=== PATIENT | female | born 1985 | race Hispanic/Latino ===

== ENCOUNTER 2018-02-18 21:41 | Emergency (ER) | payer OTHER ==
[2018-02-18] MEDS ORDERED: NACL 0.9% 1000 ML 1,000 ML IV ONE (22:11)
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
[2018-02-18 22:50] LABS: Bacteria,Urine 1+ /HPF (Negative); Bilirubin,Urine NEG (Negative); Blood,Urine NEG (Negative); Color,Urine Yellow (Yellow); Mucus,Urine FEW /HPF; Urobilinogen,Urine < 2.0 mg/dL (<2.0)
[2018-02-18 22:52] LABS: Benzodiazepines Screen,Urine PRESUMPTIVE NEGATIVE; Cannabinoid Screen,Urine PRESUMPTIVE NEGATIVE; Cocaine Screen,Urine PRESUMPTIVE NEGATIVE; Methadone Screen,Urine PRESUMPTIVE NEGATIVE; Opiate Screen,Urine PRESUMPTIVE NEGATIVE
[2018-02-18 23:05] LABS: Basophils # (Auto) 0.1 K/mm3 (0.0-0.1); Basophils % (Auto) 1.3 % (0.0-1.8); Eosinophils % (Auto) 0.7 % (0.0-4.3); Hematocrit 32.6 % (30.3-42.9); Hemoglobin 11.5 gm/dl (10.1-14.3); Lymphocytes # (Auto) 2.3 K/mm3 (1.2-5.4); Lymphocytes % (Auto) 38.4 % (13.4-35.0); Mean Corpuscular HGB Conc 35 % (30-34); Mean Corpuscular Hemoglobin 33 pg (28-32); Mean Corpuscular Volume 92 fl (79-97); Monocytes # (Auto) 0.2 K/mm3 (0.0-0.8); Platelet Count 264 K/mm3 (140-440); Red Blood Count 3.53 M/mm3 (3.65-5.03); Red Cell Distribution Width 14.5 % (13.2-15.2)
[2018-02-18 23:09] LABS: Amphetamine Screen,Urine PRESUMPTIVE POSITIVE
[2018-02-18 23:16] LABS: Albumin 4.8 g/dL (3.9-5); Calcium 9.7 mg/dL (8.4-10.2)
[2018-02-19 06:02] VITALS: BP 125/87
== END 2018-02-19 08:30 | disposition home or self-care (01) ==
LOC: ED 21:41
DX: F15.10 Other stimulant abuse, uncomplicated (principal); F19.151 Other psychoactive substance abuse with psychoactive substance-induced psychotic disorder with hallucinations; K21.9 Gastro-esophageal reflux disease without esophagitis; G43.909 Migraine, unspecified, not intractable, without status migrainosus; F17.200 Nicotine dependence, unspecified, uncomplicated; E89.0 Postprocedural hypothyroidism; Z79.899 Other long term (current) drug therapy
CPT/HCPCS: 36415; 80053; 80307; 81001; 84703; 85025; 93005; 93010; 99284; G0480; J7030; 80320

== ENCOUNTER 2018-10-26 05:33 | Emergency (ER) | payer OTHER ==
[2018-10-26 06:37] LABS: Basophils # (Auto) 0.1 K/mm3 (0.0-0.1); Basophils % (Auto) 1.9 % (0.0-1.8); Eosinophils % (Auto) 0.3 % (0.0-4.3); Hemoglobin 11.8 gm/dl (10.1-14.3); Lymphocytes # (Auto) 1.9 K/mm3 (1.2-5.4); Lymphocytes % (Auto) 30.8 % (13.4-35.0); Mean Corpuscular HGB Conc 34 % (30-34); Mean Corpuscular Volume 94 fl (79-97); Monocytes # (Auto) 0.4 K/mm3 (0.0-0.8); Monocytes % (Auto) 5.8 % (0.0-7.3); Platelet Count 322 K/mm3 (140-440); Red Blood Count 3.72 M/mm3 (3.65-5.03); Red Cell Distribution Width 14.6 % (13.2-15.2)
[2018-10-26 06:57] LABS: Calcium 8.7 mg/dL (8.4-10.2)
[2018-10-26 07:16] LABS: Benzodiazepines Screen,Urine PRESUMPTIVE NEGATIVE; Cannabinoid Screen,Urine PRESUMPTIVE NEGATIVE; Methadone Screen,Urine PRESUMPTIVE NEGATIVE; Opiate Screen,Urine PRESUMPTIVE NEGATIVE
[2018-10-26 07:23] LABS: Amorphous Crystals,Urine 2+; Bacteria,Urine 3+ /HPF (Negative); Bilirubin,Urine NEG (Negative); Blood,Urine LG (Negative); Color,Urine Yellow (Yellow); Hyaline Casts,Urine 1 /LPF; Mucus,Urine FEW /HPF; Protein,Urine <15 mg/dL mg/dL (Negative); Urobilinogen,Urine < 2.0 mg/dL (<2.0)
[2018-10-26 07:38] LABS: Amphetamine Screen,Urine PRESUMPTIVE POSITIVE; Cocaine Screen,Urine PRESUMPTIVE POSITIVE
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
--- NOTE | 2018-10-26 09:04 | XRay Report ---
PROCEDURE: XR TOE(S) 2+V LT TECHNIQUE: Left fourth toe, 3 views HISTORY: 4th toe swelling and redness COMPARISON: None FINDINGS: There is no fracture seen. There is no dislocation. There is no acute bony abnormality identified. IMPRESSION: There is no acute abnormality identified. This document is electronically signed by Sujey Hudson MD., Oct 26 2018 09:02:44 AM ET
[2018-10-26] MEDS ORDERED: BACTRIM DS PO ONE (10:52)
[2018-10-26] MEDS ORDERED: BACTRIM DS PO SCH (11:00)
[2018-10-26] MEDS ORDERED: GEODON IM ONE (11:40)
[2018-10-26] MEDS ORDERED: WATER FOR INJ Sterile (PF) 10 ML ONE (11:50)
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
[2018-10-26] MEDS ORDERED: SUDAFED PO PRN (14:45)
[2018-10-26] MEDS: VIBRAMYCIN PO SCH ×2 (17:47→18:51)
[2018-10-27] MEDS: VIBRAMYCIN PO SCH ×4 (00:37→22:00)
[2018-10-27] MEDS ORDERED: GEODON IM ONE ×2 (07:10→21:09)
[2018-10-27] MEDS ORDERED: WATER FOR INJ Sterile (PF) 10 ML ONE (07:16)
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
[2018-10-27] MEDS ORDERED: BENADRYL IM ONE (21:09)
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
[2018-10-28] MEDS: VIBRAMYCIN PO SCH ×2 (14:36→22:16)
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
[2018-10-29] MEDS: VIBRAMYCIN PO SCH (14:34)
[2018-10-29 14:51] VITALS: BP 102/66
== END 2018-10-29 15:15 ==
LOC: ED 05:33 → EEVIPCON 05:33 → ED 10-29 15:15
DX: S02.82XA Fracture of other specified skull and facial bones, left side, initial encounter for closed fracture (principal); F15.10 Other stimulant abuse, uncomplicated; F14.10 Cocaine abuse, uncomplicated; N39.0 Urinary tract infection, site not specified; L03.032 Cellulitis of left toe; F29 Unspecified psychosis not due to a substance or known physiological condition; K21.9 Gastro-esophageal reflux disease without esophagitis; G43.909 Migraine, unspecified, not intractable, without status migrainosus; F17.200 Nicotine dependence, unspecified, uncomplicated; X58.XXXA Exposure to other specified factors, initial encounter; Y93.89 Activity, other specified; Y92.488 Other paved roadways as the place of occurrence of the external cause; Y99.8 Other external cause status
CPT/HCPCS: 36415; 70450; 70486; 73660; 80048; 80307; 81001; 82550; 84703; 85025; 96372; 99285; G0480; J1200; J3486; 80320